=== PATIENT | female | born 1955 | race Caucasian/White ===

== ENCOUNTER 2019-12-13 10:55 | Day surgery (SDC) | payer MEDICARE, BC ==
[~2019-12-13] VITALS: Ht 165.1 cm; Wt 61.7 kg
[~2019-12-13 10:55] MED LIST: CVS1CAP2 PO; HYDR12CA PO; LIDOCAINE 2% 100MG/5ML SDV (FOR ANES.) As Ordered ONE; LOSA50TA88 PO; PANT40TA29 PO; ROSU10TA6 PO; VITA50005 PO; propofoL 200 MG/20 ML VIAL As Ordered ONE
[2019-12-13] MEDS ORDERED: NS 1,000 ML IV ONE (11:15)
--- NOTE | 2019-12-13 12:15 | ROOR ---
Patient Name: Linda Andrew Procedure Date: 12/13/2019 11:59 AM Date of : 1955 Age: 64 Room: [facility] Gender: Female Note Status: Finalized Procedure: Upper GI endoscopy Indications: Heartburn Providers: Geovany CULP MD Referring MD: Benita ATKINS MD Requesting Provider: Medicines: Monitored Anesthesia Care Complications: No immediate complications. Procedure: Pre-Anesthesia Assessment: - The heart rate, respiratory rate, oxygen saturations, blood pressure, adequacy of pulmonary ventilation, and response to care were monitored throughout the procedure. The Endoscope was introduced through the mouth, and advanced to the second part of duodenum. The upper GI endoscopy was accomplished without difficulty. The patient tolerated the procedure well. Findings: The Z-line was variable and was found 35 cm from the incisors. This was biopsied with a cold forceps for histology. The examined esophagus was normal. Small Hiatal Hernia. The entire examined stomach was normal. The examined duodenum was normal. Impression: - Normal esophagus. Z-line variable, 35 cm from the incisors. Biopsied. - Normal stomach with a small intermittent hiatal hernia. - Normal examined duodenum. Recommendation: - Continue present medications. - Observe patient's clinical course. - Telephone endoscopist for pathology results in 2 weeks. Geovany Culp MD Geovany CULP MD 12/13/2019 12:14:36 PM Electronically signed by Geovany CULP MD Number of Addenda: 0 Note Initiated On: 12/13/2019 11:59 AM Estimated Blood Loss: Estimated blood loss: none.
[2019-12-13 12:30] VITALS: BP 170/77
== END 2019-12-13 12:49 | disposition home or self-care (01) ==
LOC: M OPP 10:55
PROVIDERS: ATTEND Internal Medicine Gastroenterology
DX: K22.8 Other specified diseases of esophagus (principal); R12 Heartburn